=== PATIENT | female | born 1960 | race Caucasian/White ===

== ENCOUNTER 2019-05-31 13:52 | Outpatient (CLI) | payer OTHER, SELFPAY ==
--- NOTE | ~2019-05-31 | MM_ITS ---
EXAMINATION: MM screening [facility] BI w gali HISTORY: Screening mammogram TECHNIQUE: Craniocaudal and mediolateral oblique 3-D tomosynthesis images were obtained and synthetic 2-D images were generated. CAD analysis was submitted and interpreted. COMPARISON: 05/03/2018, 05/09/2017, 04/20/2016 BREAST PARENCHYMAL COMPOSITION: There are scattered areas of fibroglandular density. FINDINGS: There is no evidence of suspicious mass, calcification, or architectural distortion to sugg est malignancy in either breast. There has been no suspicious interval change. IMPRESSION: 1. No mammographic evidence of malignancy. 2. Recommend routine screening mammography in one year. BI-RADS Category 1: Negative Reviewed, dictated and finalized at location A. H INSPECTOR
== END 2019-05-31 13:53 | disposition home or self-care (01) ==
PROVIDERS: PCP Internal Medicine; Visit Provider Physician Assistant
DX: Z12.31 Encounter for screening mammogram for malignant neoplasm of breast (principal)
CPT/HCPCS: 77063; 77067

== ENCOUNTER 2020-05-16 14:53 | Outpatient (CLI) | payer OTHER, SELFPAY ==
--- NOTE | ~2020-05-16 | XR_ITS ---
XR lumbar spine 2-3V 05/16/2020 15:24 Indication: Low back pain Procedure: KUB Comparison: No prior studies for comparison. Findings: Vertebral body heights are maintained. There is mild disc narrowing at L1-2, L2-3, L3-4 and L5-S1. No acute fracture or traumatic malalignment. No evidence for spondylolysis or spondylolisthes is. Pedicles intact. There are cholecystectomy clips. There are surgical changes in the left upper ab domen. Sacral foramen are symmetric. Impression: 1: Mild lumbar spondylosis. Reviewed, dictated and finalized at location A. ATTENDANT Impression: 1: Mild lumbar spondylosis.
--- NOTE | ~2020-05-16 | XR_ITS ---
EXAMINATION: XR hip LT min 2V DATE: 05/16/2020 15:25 INDICATION: Left hip pain. TECHNIQUE: 2 views of left hip were obtained. COMPARISON: None. FINDINGS: Bone alignment is normal. No fracture. There is mild left hip osteoarthritis. IMPRESSION: 1. Mild left hip osteoarthritis. Reviewed, dictated and finalized at location A. PRESS LOADER
== END 2020-05-16 14:54 | disposition home or self-care (01) ==
PROVIDERS: PCP Internal Medicine; Visit Provider Internal Medicine
DX: M47.896 Other spondylosis, lumbar region (principal); M16.12 Unilateral primary osteoarthritis, left hip
CPT/HCPCS: 72100; 73502

== ENCOUNTER 2020-06-02 09:12 | Outpatient (CLI) | payer OTHER, SELFPAY ==
--- NOTE | ~2020-06-02 | MM_ITS ---
EXAMINATION: MM screening cris BI w gali HISTORY: Screening TECHNIQUE: Craniocaudal and mediolateral oblique 3-D tomosynthesis images were obtained and synthetic 2-D images were generated. CAD analysis was submitted and interpreted. COMPARISON: Comparison to multiple prior studies sequentially, with oldest reviewed study dated 03/16. BREAST PARENCHYMAL COMPOSITION: The breasts are heterogeneously dense, which may obscure small masses . FINDINGS: There is no evidence of suspicious mass, calcification, or architectural distortion to sugg est malignancy in either breast. There has been no suspicious interval change. IMPRESSION: 1. No mammographic evidence of malignancy. 2. Recommend routine screening mammography in one year. BI-RADS Category 1: Negative Reviewed, dictated and finalized at location A. T PROTECTION ASSISTANT
== END 2020-06-02 09:13 | disposition home or self-care (01) ==
LOC: ANHIMG 09:16
PROVIDERS: PCP Internal Medicine; Visit Provider Physician Assistant
DX: Z12.31 Encounter for screening mammogram for malignant neoplasm of breast (principal)
CPT/HCPCS: 77063; 77067

== ENCOUNTER 2020-06-22 08:03 | Outpatient (CLI) | payer OTHER, SELFPAY ==
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
== END 2020-06-22 08:04 | disposition home or self-care (01) ==
LOC: ANHIMG 08:05
PROVIDERS: PCP Internal Medicine; Visit Provider Physician Assistant
DX: Z78.0 Asymptomatic menopausal state (principal)
CPT/HCPCS: 77080

== ENCOUNTER 2021-05-05 11:56 | Emergency (ER) | payer OTHER, SELFPAY ==
[2021-05-05 12:03] VITALS: BP 137/76; PULSE 64; RESP 18; TEMP 36.3; O2SAT 100
--- NOTE | 2021-05-05 12:05 | ED.EYEPROB ---
HPI - Eye Problem General Chief complaint: Eye Problems Stated complaint: Left eye Pain Time Seen by Provider: 05/05/21 12:05 Source: patient and RN notes reviewed Mode of arrival: ambulatory Limitations: no limitations History of Present Illness HPI Narrative: 60-year-old female presents to the [facility] with complaints of 2 days of left eye redness and discomfort. No trauma to the eye. Does not wear contact lenses. No blurry vision or change in vision. States she woke up this morning with some crusting to the bottom lid. MD chief complaint: eye pain and eye redness Related Data Home Medications Medication Instructions Recorded Confirmed estradiol 1 mg tablet 1 mg PO DAILY tablet 04/09/19 05/05/21 glucosamine HCl 500 mg tablet 500 mg PO DAILY tablet 04/09/19 05/05/21 medroxyprogesterone 5 mg tablet 5 mg PO DAILY tablet 04/09/19 05/05/21 vitamin B complex 1 tablet PO DAILY 04/09/19 05/05/21 omega-3 fatty acids 1,000 mg 2,000 mg PO BID cap 09/24/19 05/05/21 capsule turmeric (bulk) 95 % powder 1 ea MISCELLANEOUS DAILY 09/24/19 05/05/21 magnesium oxide 500 mg tablet 500 mg PO DAILY 01/11/20 05/05/21 multivitamin 1 tablet PO DAILY 01/11/20 05/05/21 zinc 50 mg tablet 50 mg PO DAILY 01/11/20 05/05/21 Allergies Allergy/AdvReac Type Severity Reaction Status Date / Time Quinolones Allergy Severe LOCAL Verified 05/05/21 12:13 REACTION TO IV MED--NO REACTION WITH ORAL MED ciprofloxacin Allergy Unknown Unknown Verified 05/05/21 12:13 Iodinated Contrast Media Allergy Unknown Unknown Verified 05/05/21 12:13 Review of Systems Review of Systems: All systems reviewed & are unremarkable except as noted in HPI and below Constitutional: Constitutional: Reports no additional constitutional complaints, Denies chills and Denies fever(s) Eyes: Eyes: Reports as per HPI, Denies change in vision, Denies diplopia, Reports eye discharge, Reports irritation (Left eye), Reports itchy eyes and Denies eye pain Comments: Left lower lid redness and discomfort ENT: Reports system reviewed and no additional complaints, except as documented Cardiovascular: Cardiovascular: Reports no additional cardiovascular complaints Respiratory: Respiratory: Reports no additional respiratory complaints Gastrointestinal: Gastrointestinal: Reports no additional gastrointestinal complaints Musculoskeletal: Musculoskeletal: Reports no additional musculoskeletal complaints Integumentary/Breasts: Skin/Breast: Reports system reviewed and no additional complaints, except as docu Neurologic: Reports system reviewed and no additional complaints, except as documented Psychiatric: Psychiatric: Reports no additional psychiatric complaints Allergic/Immunologic: Allergic/Immunologic: Reports no additional allergic/immunologic complaints PMF Past Medical History Medical History (Updated 05/05/21 @ 17:44 by Carolee Fournier) Blepharospasm BMI 28.0-28.9,adult BMI 29.0-29.9,adult BMI 30.0-30.9,adult BMI 32.0-32.9,adult Cervicalgia Colon cancer screening Elevated glucose Encounter for preventive health examination Encounter for routine adult health examination without abnormal findings Encounter for screening mammogram for malignant neoplasm of breast Follow up GERD (gastroesophageal reflux disease) History of diverticulitis History of gastric polyp Hormone replacement therapy (HRT) Hyperlipidemia Insulin resistance Left hip pain Migraines On terminologist drug therapy Persistent headaches Postmenopausal HRT (hormone replacement therapy) Stress Surgical History Surgical History H/O bariatric surgery Family History Family History Father Hypertension Patient's father is Acute myocardial infarction Mother Patient's mother is in good health Hypertension Family history of arthritis Sibling Patient's sister is i
== END 2021-05-05 12:15 | disposition home or self-care (01) ==
PROVIDERS: Emergency Provider Nurse Practitioner; PCP Internal Medicine
DX: H10.32 Unspecified acute conjunctivitis, left eye (principal); K21.9 Gastro-esophageal reflux disease without esophagitis; E78.5 Hyperlipidemia, unspecified
CPT/HCPCS: 99213; G0463

== ENCOUNTER 2021-12-20 00:59 | Day surgery (SDC) | payer OTHER, SELFPAY ==
[2021-12-06 11:31] VITALS: BMI 27.4
[2021-12-20 09:21] VITALS: BP 122/59; PULSE 63; RESP 16; TEMP 36.8; O2SAT 99
[2021-12-20 09:29] LABS: Glucose Point of Care 97 mg/dl (65-105)
[2021-12-20] MEDS: LACTATED RINGERS 1,000 ML 150 ML IV CONT (09:34)
--- NOTE | 2021-12-20 09:34 | WPDHPUPDATE1 ---
History and Physical Update Update Date/Time: 12/20/21 09:34 History and Physical has been reviewed, including an updated exam of the patient. There are NO changes in the patient's condition. Risks, benefits, and alternatives have been discussed and questions answered. Patient agrees to proceed with procedure.
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
--- NOTE | 2021-12-20 10:15 | SUR.OPER ---
EGD ENDED 1008, COLONOSCOPY STARTED 1013
[2021-12-20] MEDS: SIMETHICONE ORAL SUSPENSION 20 MG/0.3 ML 30 ML BOTTLE 0.6 ML IRRIGATION (10:23)
[2021-12-20 10:31] VITALS: BP 112/59; PULSE 78; RESP 20; O2SAT 99
--- NOTE | 2021-12-20 10:33 | SUR.OPER ---
DR WALDRON NOTIFIED ASCENDING COLON POLYP NOT RETRIEVED
[2021-12-20 10:41] VITALS: BP 114/60; PULSE 65; RESP 21; O2SAT 99
[2021-12-20 10:51] VITALS: BP 119/79; PULSE 56; RESP 24; O2SAT 99
== END 2021-12-20 11:07 | disposition home or self-care (01) ==
PROVIDERS: PCP Internal Medicine; Visit Provider Internal Medicine Gastroenterology
PROC: 0DJ08ZZ Inspection of Upper Intestinal Tract, Via Natural or Artificial Opening Endoscopic (ICD-10-PCS; CPT 43235; principal; 2021-12-20 10:30)
DX: Z12.11 Encounter for screening for malignant neoplasm of colon (principal); D12.2 Benign neoplasm of ascending colon; K21.9 Gastro-esophageal reflux disease without esophagitis; K57.30 Diverticulosis of large intestine without perforation or abscess without bleeding; K64.8 Other hemorrhoids; E78.5 Hyperlipidemia, unspecified; M19.012 Primary osteoarthritis, left shoulder; Z98.84 Bariatric surgery status; Z79.899 Other long term (current) drug therapy
CPT/HCPCS: 45385; 43239; 82948; 87081; J2704; J7120

== ENCOUNTER 2022-03-26 12:01 | Outpatient (CLI) | payer OTHER, SELFPAY ==
--- NOTE | ~2022-03-26 | XR_ITS ---
EXAM: XR knee LT min 4V DATE: 03/26/2022 12:19 HISTORY: PAIN MEDIAL KNEE, NO KNOWN INJURY . COMPARISON: None available. FINDINGS: Decreased mineralization. No fracture or dislocation. No lytic or blastic lesion. Mild med ial joint space narrowing. Mild tricompartmental osteophytosis. Quadriceps enthesopathy. No erosion o r periosteal change. Soft tissues within normal limits. IMPRESSION: Mild left knee osteoarthritis. Reviewed, dictated and finalized at location K. D MEMBER
== END 2022-03-26 12:02 | disposition home or self-care (01) ==
PROVIDERS: PCP Internal Medicine; Visit Provider Internal Medicine
DX: M25.562 Pain in left knee (principal); M17.12 Unilateral primary osteoarthritis, left knee
CPT/HCPCS: 73564

== ENCOUNTER 2023-03-26 14:12 | Outpatient (CLI) | payer OTHER, SELFPAY ==
--- NOTE | ~2023-03-26 | MM_ITS ---
EXAMINATION: MM screening cris BI w gali HISTORY: Screening TECHNIQUE: Craniocaudal and mediolateral oblique 3-D tomosynthesis images were obtained and synthetic 2-D images were generated. CAD analysis was submitted and interpreted. COMPARISON: Comparison to multiple prior studies sequentially, with oldest reviewed study dated 03/16. BREAST PARENCHYMAL COMPOSITION: The breasts are heterogeneously dense, which may obscure small masses . FINDINGS: There is no evidence of suspicious mass, calcification, or architectural distortion to sugg est malignancy in either breast. There has been no suspicious interval change. IMPRESSION: 1. No mammographic evidence of malignancy. 2. Recommend routine screening mammography in one year. BI-RADS Category 1: Negative Reviewed, dictated and finalized at location A. ING NICKER
--- NOTE | ~2023-03-26 | DEXA_ITS ---
Bone Density Report Name: RASHAD BOND Age: 62 Sex: Female Ethnicity: White Date of : 1960 Indication: postmenopausal; screening for osteoporosis; height loss; inflammatory bowel disease; prior fracture; cancer; hysterectomy; Referring Provider: JACINDA SHARMA Study: Bone densitometry was performed. Exam Date: March 26, 2023 Accession number: [id number] Bone Density: Region BMD T-score Z-score Classification AP Spine(L1-L4) 1.343 2.7 4.3 Normal Femoral Neck (Left) 0.933 0.8 2.2 Normal Total Hip (Left) 1.163 1.8 2.9 Normal Femoral Neck (Right) 0.929 0.7 2.1 Normal Total Hip (Right) 1.105 1.3 2.4 Normal Total Hip Mean 1.134 1.6 2.7 Normal World Health Organization criteria for BMD impression classify patients as: Normal (T-score at or above -1.0), Osteopenia (T-score between -1.0 and -2.5), or Osteoporosis (T-score at or below -2.5). 10-year Fracture Risk: FRAX not reported because: All T-scores for Spine Total, Hip Total, Femoral Neck at or above -1.0 Clinical Information Provided by Patient: Has had a low trauma fracture Has used the following medications: Vitamin D Has the following medical conditions: Cancer, Inflammatory bowel diseases, Hysterectomy Patient maximum height was 68 Menopause Age: 45 Drinks caffeinated beverages Onset of menses at age 12 Number of children 0 Impression: The patient has normal bone mass. The patient has risk factors, including: previous fracture. Discussion: LOW RISK OF FRACTURE; BONE DENSITY IS WELL ABOVE THE MINIMUM DESIRABLE LEVEL AND ABOVE AVERAGE FOR AGE AND SEX AT ALL SKELETAL SITES TESTED. This person's bone density is above expected limits for age and sex. This is rarely clinically significant, but should be pursued if there are significant musculoskeletal complaints. The patient should follow a healthful lifestyle (good nutrition with adequate calcium and vitamin D, and appropriate weight-bearing exercise). Follow-Up: Consider repeating this study in 5 years or sooner if there is some new clinical indication. Reported by: DIXON on 03/26/2023 2:42:00 PM. Reviewed, dictated and finalized at location A. RODNEY
== END 2023-03-26 14:13 | disposition home or self-care (01) ==
PROVIDERS: PCP Internal Medicine; Visit Provider Internal Medicine
DX: Z12.31 Encounter for screening mammogram for malignant neoplasm of breast (principal); Z78.0 Asymptomatic menopausal state
CPT/HCPCS: 77063; 77067; 77080

== ENCOUNTER 2024-04-27 09:06 | Outpatient (CLI) | payer OTHER, SELFPAY ==
--- NOTE | ~2024-04-27 | MM_ITS ---
EXAMINATION: MM screening cris BI w gali HISTORY: Screening mammogram TECHNIQUE: Craniocaudal and mediolateral oblique 3-D tomosynthesis images were obtained and synthetic 2-D images were generated. CAD analysis was submitted and interpreted. COMPARISON: 03/26/2023, 06/02/2020 BREAST PARENCHYMAL COMPOSITION:Not Dense. There are scattered areas of fibroglandular density. FINDINGS: No suspicious mass, calcification, or architectural distortion are identified in either vickie ast to suggest malignancy. There has been no suspicious interval change. IMPRESSION: No mammographic evidence of malignancy. Recommend routine screening mammography in one year. BI-RADS Category 1: Negative Reviewed, dictated and finalized at location . ROOM SUPERVISOR
== END 2024-04-27 09:07 | disposition home or self-care (01) ==
LOC: ANHIMG 09:07
PROVIDERS: PCP Internal Medicine; Visit Provider Internal Medicine
DX: Z12.31 Encounter for screening mammogram for malignant neoplasm of breast (principal)
CPT/HCPCS: 77063; 77067

== ENCOUNTER 2024-07-06 14:50 | Outpatient (CLI) | payer OTHER, SELFPAY ==
--- NOTE | ~2024-07-06 | US_ITS ---
EXAMINATION: US thyroid DATE: 07/06/2024 15:07 INDICATION: Other specified disorders of thyroid. Other diseases of pharynx. Left neck lump. TECHNIQUE: Multiple ultrasound images of the thyroid were obtained. COMPARISON: None. FINDINGS: The right thyroid lobe measures 4.4 x 1.3 x 1.7 cm. The left thyroid lobe measures 4.5 x 1.3 x 1.7 c m. In the right thyroid lobe, there is a 5 mm solid, hypoechoic, wider than tall nodule with ill-def ined margin without echogenic foci (TI-RADS TR4). In the right thyroid lobe, there is a 13 mm solid, hypoechoic, wider than tall nodule with ill-defined margin without echogenic foci (TR4). IMPRESSION: 1. Thyroid nodules. Thyroid ultrasound is recommended in one year. Reviewed, dictated and finalized at location A.
== END 2024-07-06 14:51 | disposition home or self-care (01) ==
PROVIDERS: PCP Internal Medicine; Visit Provider Internal Medicine
DX: J39.2 Other diseases of pharynx (principal); E04.2 Nontoxic multinodular goiter
CPT/HCPCS: 76536

== ENCOUNTER 2024-09-21 12:41 | Outpatient (CLI) | payer OTHER, SELFPAY ==
--- NOTE | ~2024-09-21 | US_ITS ---
EXAMINATION: US FNA w image guidance DATE: 09/21/2024 13:46 INDICATION: Nontoxic single thyroid nodule TECHNIQUE: A time-out was performed to verify the patient's name, date of , and procedure to be performed . The procedure and its benefits and risks were discussed with the patient. Risks specifically discus sed included bleeding and infection. The patient understood the risks and agreed to proceed. The neck was prepped and draped in the usual sterile manner. 4 mL 1% lidocaine was used for local anesthesia . 7 passes were made with a 25G needle into the lesion. Appropriate needle location was documented with continuous sonographic guidance. A sterile bandage was applied. There were no immediate compli cations. FINDINGS: Grayscale ultrasound images demonstrate 3 nodules in the right thyroid lobe, the largest measuring 1. 2 cm is thought hypoechoic wider than tall with smooth margins and with multiple punctate internal ec hogenic foci. (TI-RADS 5, highly suspicious , FNA if >=1.0 cm, annual followup is >0.5 cm). There is a smaller wider than tall predominantly solid isoechoic nodule with ill-defined margins and without e chogenic foci (TI-RADS 3, mildly suspicious , FNA if >=2.5 cm, annual followup is >=1.5 cm). The <5 m m right thy solid hypoechoic oid nodule identified on prior ultrasound. Unchanged on real-time warehousing technician imaging. Subsequent images demonstrate the biopsy needle advanced into the 1.2 cm TI RADS 5 nodule at the inferior right thyroid. IMPRESSION: 1. Successful ultrasound-guided fine needle aspiration of a 1.2 cm TI RADS 5 right thyroid nodule. Reviewed, dictated and finalized at location A. IMPRESSION: 1. Successful ultrasound-guided fine needle aspiration of a 1.2 cm TI RADS 5 r ight thyroid nodule.
--- OUTSIDE RECORDS SUMMARY | 2024-09-21 13:31 | XMS_ITS | Clinical Summary ---
Author Organization [facility] Address [address] [place] [address] Care Team Providers Care Emergency Vehicle Driver Name Role Phone Linden Call MD Primary Care Provider + Social History Tobacco Use Types Packs/Day Years Used Date Smoking Tobacco: Never Assessed Comments Unknown Sex and Gender Information Value Date Recorded Sex Assigned at Not on file Legal Sex Female 12:35 PM CDT Gender Identity Not on file Sexual Orientation Not on file Plan of Treatment Health Maintenance Due Date Last Done Comments Annual Wellness 1960 Td, Tdap Vaccines Adult 09/14/1979 Pap Smear 1981 Mammogram 2000 Colonoscopy 2005 Shingrix (ZOSTER RECOMBINANT ) (1 of 2) 2010 RSV 60+ (1 - 1-dose 75+ series) 09/14/2035 Influenza Vaccination Completed 02/10/2024 , 01/23/2023 Pneumococcal Vaccine: 50+ Years Completed 04/27/2024 HIB Vaccines Aged Out No longer eligi ble based on patient's age to complete this topic HPV Vaccines Aged Out No longer eligi ble based on patient's age to complete this topic Hepatitis A Vaccines Aged Out No long er eligible based on patient's age to complete this topic Hepatitis B Vaccines Aged Out No long er eligible based on patient's age to complete this topic IPV Vaccines Aged Out No longer eligi ble based on patient's age to complete this topic Meningococcal Vaccines Aged Out No lo nger eligible based on patient's age to complete this topic RSV Mab Nirsevimab (Beyfortu s) <20 months Aged Out No longer eligible b ased on patient's age to complete this topic Rotavirus Vaccines Aged Out No longer eligible based on patient's age to complete this topic Insurance [employer] Care Teams Emergency Vehicle Driver Relationship Specialty Start Date End Date Linden Call MD PCP - General Internal Medicine 10/17/21
--- NOTE | 2024-09-21 13:42 | CY_PTH ---
PATIENT: Valeri Love LOC: [facility] U#:[id number] AGE/SX: 64/F ROOM: RE09/21/[address]: Silas Lees MD : 1960 BED: DIS: 09/21/2024 SPEC #: [id number] RECD: 09/21/24 13:49 STATUS: YUE REQ #: [id number] WILBER: 09/21/24 13:[address]: Silas Lees DEPT: [facility] Cytology RECD BY: Kalie Daly ENTERED: 09/21/24 13:50 SP TYPE: Cytology OTHR DR: Linden Call MD Tissues: A - FNA Thyroid Procedures: Hematoxylin and Eosin Stain Cell Block Fine Needle Aspiration Evaluation Fna Additional Pass Fine Needle Aspiration Pathologist
== END 2024-09-21 12:42 | disposition home or self-care (01) ==
PROVIDERS: PCP Internal Medicine; Visit Provider Otolaryngology
DX: E04.1 Nontoxic single thyroid nodule (principal)
CPT/HCPCS: 10005; 88172; 88173; 88177; 88305

== ENCOUNTER 2025-01-18 15:21 | Outpatient (CLI) | payer OTHER, SELFPAY ==
--- NOTE | ~2025-01-18 | CT_ITS ---
EXAMINATION: CT brain w con, 01/18/2025 15:25 CDT HISTORY: Headache, vertigo COMPARISON: No comparisons available. Technique: Axial images obtained of the brain with intravenous contrast. One or more of the following dose reduction techniques were used: automated exposure control, adjustment of the mA and/or kV according to patient size, use of iterative reconstruction technique. Findings: No acute infarct or parenchymal hemorrhage. No abnormal enhancement No abnormal mass or mass effect. No midline shift. No extra-axial fluid collections. No hydrocephalus. Mastoid air cells unremarkable. Sinuses and orbits unremarkable. No acute fracture. No significant facial or scalp soft tissue swelling evident. No radiopaque foreign body is seen. Impression: 1.No acute intracranial abnormality. If symptoms persist MRI is recommended Reviewed, dictated and finalized at location P. Impression: 1.No acute intracranial abnormality. If symptoms persist MRI is recommended
== END 2025-01-18 15:22 | disposition home or self-care (01) ==
PROVIDERS: PCP Internal Medicine; Visit Provider Internal Medicine
DX: R51.9 Headache, unspecified (principal); R42 Dizziness and giddiness
CPT/HCPCS: 70460; Q9967

== ENCOUNTER 2025-01-19 12:11 | Outpatient (CLI) | payer OTHER, SELFPAY ==
--- NOTE | ~2025-01-19 | US_ITS ---
EXAMINATION: US FNA w image guidance DATE: 01/19/2025 13:23 INDICATION: Nontoxic single right thyroid nodule TECHNIQUE: A time-out was performed to verify the patient's name, date of , and procedure to be performed. The procedure and its benefits and risks were discussed with the patient. Risks specifically discussed included bleeding and infection. The patient understood the risks and agreed to proceed. The neck was prepped and draped in the usual sterile manner. 4 mL 1% lidocaine was used for local anesthesia. 6 passes were made with a 25G needle into the lesion. Appropriate needle location was documented with continuous sonographic guidance. A sterile bandage was applied. There were no immediate complications. FINDINGS: Grayscale ultrasound images demonstrate biopsy needles advanced into a 1.4 cm TI RADS 5 right thyroid nodule. IMPRESSION: 1. Successful ultrasound-guided fine needle aspiration of a 1.4 cm TI RADS 5 right thyroid nodule. Reviewed, dictated and finalized at location A. IMPRESSION: 1. Successful ultrasound-guided fine needle aspiration of a 1.4 cm TI RADS 5 r ight thyroid nodule.
--- NOTE | 2025-01-19 13:18 | CY_PTH ---
PATIENT: Valeri Love LOC: [facility] U#:[id number] AGE/SX: 64/F ROOM: RE01/19/[address]: Silas Lees MD : [id number] BED: DIS: 01/19/2025 SPEC #: [id number] RECD: 01/19/25 13:20 STATUS: YUE REKhadijah #: [id number] WILBER: 01/19/25 13:[address]: Silas Lees DEPT: [facility] Cytology RECD BY: Kaylene Ruelas ENTERED: 01/19/25 13:21 SP TYPE: Cytology OTHR DR: Linden Call MD Tissues: A - FNA Thyroid Procedures: Hematoxylin and Eosin Stain Cell Block Fine Needle Aspiration Evaluation Fna Additional Pass Fine Needle Aspiration Pathologist
== END 2025-01-19 12:12 | disposition home or self-care (01) ==
PROVIDERS: PCP Internal Medicine; Visit Provider Otolaryngology
DX: E04.1 Nontoxic single thyroid nodule (principal)
CPT/HCPCS: 10005; 88172; 88173; 88177; 88305